=== PATIENT | male | born 1995 | race Caucasian/White ===

== ENCOUNTER → 2017-08-17 | Outpatient (CLI) | payer OTHER ==
--- NOTE | 2017-08-17 11:27 | RADIOLOGY REPORT PS360 ---
CLAVICLE-RT HISTORY: Follow-up fracture FU FX ACROMIAL END RT CLAVICLE ORDERING PHYSICIAN: Moses Aldridge MD PATIENT AGE: 21 years COMPARISON: 07/13/2017 FINDINGS: Avulsion fracture of the distal aspect of the clavicle is once again noted. The calcification at the avulsed fragment is somewhat more prominent compared to the previous exam. There remains minimal separation of the avulsed fragment superiorly x 2 mm. AC joint remains intact. IMPRESSION: Slight increase calcification of the avulsed fragment of the distal clavicle which may indicate healing.
== END ==
LOC: RAD 11:03
DX: S42.034D Nondisplaced fracture of lateral end of right clavicle, subsequent encounter for fracture with routine healing (principal)

== ENCOUNTER 2017-10-11 14:30 | Emergency (ER) | payer BC ==
[~2017-10-11] VITALS: Ht 180.3 cm; Wt 67.6 kg
[~2017-10-11 14:30] MED LIST: KEFLEX 500MG.500 MG PO
[2017-10-11] MEDS ORDERED: AMOXICILLIN 50500 MG PO (14:45)
--- NOTE | 2017-10-11 14:52 | Emergency Room Report ---
History of Present Illness Time Seen by [id number] Presenting Problem in Triage Pt arrived:Walked Presenting Problem:MOTHER REPORTS PT BEGAN HAVING RASH ALL OVER BODY LASTNIGHT. STATES PT HAS BEEN BEING TREATED WITH AMOXICILLIN X7 DAYS R/T FEVER AND DIZZINESS. STATES FEVER, DIZZINESS AND SORE THROAT FOR APPROX 2 WEEKS. 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 Y Clinical Suspician of Infection? N Mental Status: 1 - Regular (Normal Baseline) Sepsis Risk:Low Sepsis Risk Have you (or family members/close friends) recently traveled outside the [place]? N If Yes, where/when: Have you had exposure to infectious disease within the past month? N TB? Other? Specify: Source patient, RN notes reviewed, family Exam Limitations no limitations Comment Pt seen about a week ago and treated for a strep throat with Amoxicillin. Last night broke out all over with a rash and still has a sore throat and no history of allergy to any meds. ALLERGIES Coded Allergies: No Known Allergies (07/02/17) Home Medications Reported Medications Amoxicillin Trihydrate (Amoxicillin 500MG) 500 MG PO BID #20 History Medical History General Angina: No LA: No Hypertension? No Hyperlipidemia? No CHF? No COPD? No Asthma? No CVA? No Seizures? No Diabetes? No GB Disease: No MRSA? No TB? No Cancer? No Immunization Hx Ped.Immunizations UTD Yes DT/Tetanus 1-4 Years Ago Surgical Hx Previous Surgery?N Social History Smoking Hx Smoker: Never Smoker Tobacco: No Alcohol Alcohol: No Review of Systems All Other Systems Reviewed and Negative Constitutional see HPI ENT see HPI, throat pain. Skin see HPI, rash Physical Exam Vital Signs Vital Signs Date Time Temp Pulse Resp B/P Pulse O2 O2 Flow FiO2 Ox Delivery Rate 10/11 1555 102.6 101 18 103/55 98 10/11 1437 98.7 92 18 102/54 96 General Appearance normal appearance, WD/WN, no apparent distress, rash all over body. MP rash Ear, Nose, Throat pharyngeal erythema Respiratory Status No: respiratory distress. 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 No Results/Orders Laboratory Tests 10/11/17 1505: Sodium 135 L, Potassium 3.9, Chloride 99, Carbon Dioxide 28, BUN 6 L, Creatinine 1.1, Estimated Creat Clear 103, Estimated GFR (MDRD) 86, Glucose 107 H, Calcium 8.3 L, Total Bilirubin 0.3, AST 63 H, ALT 68, Alkaline Phosphatase 123 H, Total Protein 7.1, Albumin 3.2 L, Globulin 3.9 H, Albumin/Globulin Ratio 0.8 L, WBC 9.6, RBC 4.56 L, Hgb 13.2 L, Hct 38.6 L, MCV 84.6, RDW 13.3 , Plt Count 174, MPV 8.8, Gran % 15.7 L, Gran # 1.5, Total Counted 100, Lymphocytes % 77.5 H, Monocytes % 4.2, Eosinophils % 0.4, Basophils % 2.1 H, Neutrophils 21 L, Band Neutrophils 2, Lymphocytes (Manual) 19, Lymphocytes # 7.5 H, Monocytes (Manual) 5, Monocytes # 0.4, Eosinophils # 0.0, Basophils # 0.2, Atypical Lymphocytes 53 *H, Platelet Estimate NORMAL, PUBS MCHC 34.0, MCH 28.8, Monoscreen POSITIVE H Current Medication Orders Sig/Mohamud Start time Last Medication Dose Route Stop Time Status Admin Acetaminophen 1,000 MG ONCE ONE 10/11 1615 DCr 10/11 PO 10/11 161 1603 Acetaminophen 0 .STK-MED ONE 10/11 1600 DCr PO Orders Procedure Date/time Status DIFFERENTIAL-WBC 10/11 1505 Complete MONO SCREEN 10/11 1454 Complete CBC WITH AUTO DIFF 10/11 1454 Complete CHEM 12 PROFILE 10/11 1454 Complete Departure Departure Time of Disposition 1615 Disposition DC Home or Self Care(routine) Clinical Impression Primary Impression: Mononucleosis Condition STABLE Referrals Moses Aldridge MD Patient Instructions DI for Mononucleosis-Adult, Mononucleosis Additional Instructions Use medicines as directed and followup with Dr. Aldridge in 1 week to re- evaluate. Advised to stay off work for next week or two as he has splenic enlargement which is more susceptible to injury Discharge Counseling Counseled pt/family regarding diagnosis, test results, medications/RX, home care, follow up needs Prescriptions Current Visit Scripts Prednisone (Prednisone 5MG) 5 MG PO DIRECTED #39 TAB 6 tabs QD X 3D 4 tabs QD X 3D 2 tabs QD X 3D 1 tab QD X 3D Throat Lozenges (Cepacol Sore Throat Lozenge) 1 [place] PRN PRN sore throat #40 [facility] ED Critical Care Critical Care No If Critical Care minutes are documented, the time involved in the performance of seperately reportable procedures was not counted toward critical care time documented. I directly delivered medical care to this critically ill and/or injured patient. Timely evaluation and treatment was necessary to address the significant organ system(s) dysfunction present in this patient. at [id number]
[2017-10-11 15:14] LABS: LYMPH # 7.5 K/mm3 (0.7-4.5); LYMPH % 77.5 % (10-50)
[2017-10-11 15:16] LABS: HEMOGLOBIN 13.2 g/dL (14.1-18.0)
[2017-10-11 16:04] LABS: NEUTROPHILS 21 % (42-76)
[2017-10-11] MEDS ORDERED: PREDNISONE 5MG.5 MG PO (16:19)
[2017-10-11] MEDS ORDERED: [UNRECOGNIZED DRUG - OTHER] MT (16:19)
[2017-10-11 16:42] VITALS: BP 115/64
== END 2017-10-11 16:45 | disposition home or self-care (01) ==
LOC: ER 14:30
PROVIDERS: General Practice
DX: B27.90 Infectious mononucleosis, unspecified without complication (principal)